=== PATIENT | male | born 1980 | race Caucasian/White ===

== ENCOUNTER 2017-12-25 18:33 | Emergency (ER) | payer OTHER ==
[2017-12-25 18:45] VITALS: TEMP 98.2
[2017-12-25] MEDS ORDERED: ACETAMINOPHEN 325 MG TAB PO ONE (19:36)
--- NOTE | 2017-12-25 19:59 | EDPHY ---
H & P Time Seen by Provider: 12/25/17 19:01 HPI/ROS: This patient was skiing [employer] boot 4 days prior to arrival at moderate speed when he crashed by going off a cat- walk catching a bit of air and losing his balance. He slammed the occiput of his head on firm snow while wearing a helmet and was dazed. He reports that he laid on the snow for few minutes and his reports that he seems days for about 30 min after the accident. He denies any other injuries from the fall except the had sore abdominal wall muscles for few days now improving. He was able to ski after the fall. He started taking aspirin for headache that was mild the 1st night but has worsened since then. He continues taking aspirin daily for the symptoms. He describes the headache last night is 8/10 intensity and 7/10 today. He left work today at 11:00 a.m. Due to ongoing symptoms. He reports the location is being both occipital and frontal. He describes the nature as dull. He notes no other exacerbating factors. His drove him here by private vehicle for further evaluation of his symptoms tonight. ROS: Neuro: No confusion. No numbness tingling or focal weakness. No vision changes. HEENT: No facial trauma or other complaints Pulmonary: No chest wall pain GI: No nausea vomiting Integumentary: No lacerations abrasions Musculoskeletal: No midline neck or back pain or extremity injuries 10 point ROS is otherwise negative Smoking Status: Never smoked Physical Exam: Physical exam: Vital signs are normal General: Patient is in no acute distress. HEENT: Is no external evidence of trauma on exam. Nose atraumatic. Ears: Clear bilaterally with no hemotympanum. Oropharynx: No dental trauma or malocclusion. No intraoral lacerations. Eyes: Pupils are equal and reactive to light. Extraocular motions are intact. Optic fundi: Clear with no papilledema or hemorrhage. Neck: Trachea is midline with no stridor. The patient has no midline neck tenderness and retains a full range of motion without increase in pain. Lungs: Clear to auscultation bilaterally Cardiac: Regular rate and rhythm no murmur gallop or rub. Chest: Nontender. Abdomen: Soft nontender no organomegaly Back: Nontender Extremities: Atraumatic Neuro: GCS of 15. Cranial nerves II through XII intact. 3 out of 3 five- minute memory is intact. Cerebellar exam is normal as judged by symmetric rapid hand movements bilaterally. No pronator drift. No sensory or motor deficits are appreciated. Initial differential diagnosis: Concussion, subdural hemorrhage, cerebral contusion, skull fracture, basilar skull fracture Constitutional: Initial Vital Signs Temperature (C) 36.8 C 12/25/17 18:40 Heart Rate 76 12/25/17 18:40 Respiratory Rate 18 12/25/17 18:40 Blood Pressure 142/75 H 12/25/17 18:40 O2 Sat (%) 96 12/25/17 18:40 O2 Delivery Mode Room Air Allergies/Adverse Reactions: Cephalosporins Allergy (Verified 12/25/17 18:40) Sulfa (Sulfonamide Antibiotics) Allergy (Verified 12/25/17 18:40) Home Medications: Medication Instructions Recorded Prevacid 12/25/17 MDM/Departure - MDM Imaging Results: Imaging Impressions Head CT 12/25/17 19:14 Impression: There is no acute abnormality identified on this unenhanced CT evaluation. If there is further clinical concern regarding the patient's symptoms, MR imaging is suggested, if not otherwise contraindicated. Findings were discussed with MILADY WILSON MD at 19:40, on 12/25/2017. Imaging: Discussed imaging studies w/ scallop raker Radiologist (I also reviewed the CT images myself.) Medications Given: Discontinued Medications Acetaminophen (Tylenol) 975 mg PO EDNOW ONE Stop: 12/25/17 19:37 Last Admin: 12/25/17 20:04 Dose: 975 mg ED Course/Re-evaluation: After reviewed the CT, patient treated with Tylenol p.o. Discussion: Patient presents with concussion without LOC. Because he had worsening headache while taking aspirin was concerned about the possibility of cerebral contusion, subdural hemorrhage or other. As fact we ruled out with CT. No other concerning findings. I counseled patient's regarding concussion in some detail prior to discharge home answered all their questions. Patient understands need to return emergency department should he developed unbearable headache, vomiting more than once, confusion or other concerns. - Depart Disposition: Home, Routine, Self-Care Clinical Impression: Concussion Qualifiers: Encounter type: initial encounter Loss of consciousness presence/duration: without LOC Qualified Code(s): S06.0X0A - Concussion without loss of consciousness, initial encounter Condition: Good Instructions: Concussion (ED) Additional Instructions: Diagnosis: Concussion Plan: Stop aspirin Tylenol and/or ibuprofen for discomfort if needed Do not exceed 3000 mg of Tylenol per 24 hr or 2400 mg of ibuprofen in 24 hr The activity-no work for the next 2 days No activities but she risk for recurrent head injury until 7 days after resolution of her symptoms. Return emergency department if you develop severe headache, confusion, vomiting more than once or other concerns. Referrals: NONE *PRIMARY CARE P,. [Unknown] - As per Instructions Jennifer Camilo MD [[facility] Primary Care Provider] - As per Instructions
[2017-12-25 20:11] VITALS: BP 105/69; PULSE 74; RESP 15; O2SAT 95
== END 2017-12-25 20:12 | disposition home or self-care (01) ==
LOC: CED 18:33
DX: S06.0X0A Concussion without loss of consciousness, initial encounter (principal); V00.321A Fall from snow-skis, initial encounter; Y99.8 Other external cause status; Y93.23 Activity, snow (alpine) (downhill) skiing, snowboarding, sledding, tobogganing and snow tubing
CPT/HCPCS: 70450-PO